=== PATIENT | female | born 1980 | race Caucasian/White ===

== ENCOUNTER → 2024-08-10 09:27 | Outpatient (CLI) | payer OTHER, SELFPAY ==
[2024-08-10 10:15] LABS: Add Manual Diff / Slide Review NO; Basophils Absolute Auto 100 /uL (0-100); Eosinophils Absolute Auto 100 /uL (0-450); Eosinophils Percent Auto 2.7 % (2-4); Hematocrit 38.3 % (36-46); Hemoglobin 12.6 g/dL (12.0-16.0); Lymphocytes Absolute Auto 1600 /uL (1100-4500); Lymphocytes Percent Auto 29.1 % (25-40); Mean Corpuscular HGB Conc 32.8 % (30-36); Mean Corpuscular Volume 85.2 fL (80-100); Monocytes Absolute Auto 500 /uL (0-900); Monocytes Percent Auto 8.6 % (3-14); Neutrophils Absolute Auto 3100 /uL (1500-7000); Neutrophils Percent Auto 58.6 % (50-75); Platelet Count 200 X10^3/uL (150-400); Red Blood Cell Count 4.49 X10^6/uL (4.0-5.2); Red Cell Distribution Width 14.4 % (11.6-14.8); White Blood Cell Count 5.4 X10^3/uL (4.5-11.0)
[2024-08-10 10:31] LABS: Alanine Aminotransferase 19 IU/L (<35); Albumin Globulin Ratio 1.6 (1.0-2.8); Alkaline Phosphatase 72 U/L (38-126); Aspartate Aminotransferase 21 IU/L (14-36); BUN Creatinine Ratio 17.1 (6-22); Bilirubin Total 0.6 mg/dL (0.2-1.3); Blood Urea Nitrogen 13 mg/dL (7-17); Carbon Dioxide 21 mmol/L (22-32); Chloride 108 mmol/L (98-107); Cholesterol 197 mg/dL (140-199); Estimated Glomerular Filt Rate > 60 mL/min (>60); Globulin 2.5 g/dL (1.7-4.1); Glucose 98 mg/dL (70-99); HDL Cholesterol 54 mg/dL (40-60); HEMOLYSIS < 15 (0-50); LDL Cholesterol Calculated 129 mg/dL (<100); Potassium 4.2 mmol/L (3.4-5.1); Sodium 137 mmol/L (137-145); Total Protein 6.5 g/dL (6.3-8.2); Triglycerides 72 mg/dL (35-150)
[2024-08-10 10:35] LABS: Hemoglobin A1C% w Est Avg Glu 5.4 % (4.0-6.0)
== END ==
PROVIDERS: Family Provider Family Medicine; PCP Family Medicine; Referring Provider Family Medicine; Visit Provider Family Medicine
DX: Z00.00 Encounter for general adult medical examination without abnormal findings (principal); Z68.43 Body mass index [BMI] 50.0-59.9, adult; E78.5 Hyperlipidemia, unspecified
CPT/HCPCS: 36415; 80053; 80061; 83036; 85025

== ENCOUNTER → 2024-10-02 19:08 | Outpatient (CLI) | payer OTHER, SELFPAY ==
--- NOTE | 2024-10-02 19:13 | DI.MRI.S_ITS ---
PROCEDURE: MR HEAD/BRAIN WO/W CON INDICATIONS: chronic migraines, vision changes TECHNIQUE: Noncontrast axial T1 spin echo, axial T2 fast spin echo, sagittal and axial FLAIR, coronal T2 fast spin echo, axial gradient echo, axial diffusion and ADC through the brain. After the administration of contrast, axial and coronal and sagittal 3D VIBE or T1 spin echo with fat saturation through the brain. COMPARISON: None. FINDINGS: Image quality: Excellent. CSF Spaces: Basal cisterns are patent. No extra-axial fluid collections. Ventricles are normal in size and shape. Brain: No midline shift. No intracranial bleeds or masses. No abnormal intracranial enhancement. The brainstem appears normal. Diffusion-weighted images demonstrate no acute infarct. No chronic ischemic insults. Normal intravascular flow voids are present. Skull and face: Calvarial marrow is normal in signal. Orbits appear normal. Sinuses: Sinuses and mastoids appear clear. IMPRESSION: 1. No acute process. No recent infarct. Dictated by: Susan Rodriguez M.D. on 10/03/2024 at 12:08 Approved by: Susan Rodriguez M.D. on 10/03/2024 at 12:10
== END ==
LOC: MRI 19:09
PROVIDERS: Family Provider Family Medicine; PCP Family Medicine; Referring Provider Family Medicine; Visit Provider Family Medicine
DX: G43.909 Migraine, unspecified, not intractable, without status migrainosus (principal); H53.9 Unspecified visual disturbance
CPT/HCPCS: 70553; A9579

== ENCOUNTER 2024-11-12 09:28 | Day surgery (SDC) | payer OTHER, SELFPAY ==
[2024-11-12 10:32] VITALS: BP 146/92; PULSE 79; RESP 18; TEMP 37.3; O2SAT 97
[2024-11-12] MEDS: LACTATED RINGERS 1,000 ML 42 ML IV (10:33)
[2024-11-12] MEDS: ONDANSETRON 4 MG/2 ML INJ IV (10:38)
--- NOTE | 2024-11-12 10:43 | PM.HP.IH.1 ---
History of Present Illness History of Present Illness Date Patient Seen: 11/12/24 Chief complaint: SDC PFS Social History Smoking Status: Never smoker alcohol intake: never Meds Home Medications and Allergies Home Medications ?Medication ?Instructions ?Recorded ?Confirmed ?Type diphenhydramine HCl 25 mg tablet 25 mg PO DAILY PRN allergy symptoms 08/02/24 11/12/24 History (Benadryl Allergy) topiramate 25 mg tablet 50 mg (2 x 25 mg) PO BID #120 tabs 09/27/24 11/12/24 Rx semaglutide (weight loss) 0.25 0.25 mg (0.5 mL) SUBCUT QWEEK #2 mL 10/01/24 11/12/24 Rx mg/0.5 mL subcutaneous pen injector sodium,potassium,mag sulfates 17.5 See Rx Instructions PO .COMPLEX 10/15/24 11/12/24 Rx gram-3.13 gram-1.6 gram oral soln #354 mL (Suprep Bowel Prep Kit) cetirizine 10 mg tablet (24Hour 10 mg PO DAILY PRN allergy symptoms 11/12/24 11/12/24 History Allergy) fluticasone propionate 50 2 spray intranasal DAILY PRN 11/12/24 11/12/24 History mcg/actuation nasal allergy symptoms spray,suspension (24 Hour Allergy Relief) Allergies Allergy/AdvReac Type Severity Reaction Status Date / Time nickel Allergy Intermediate Rash Verified 11/12/24 09:48 Exam Vital Signs (past 8 hours): - 11/12/24 10:32 Temperature 99.1 F Pulse Rate 79 Respiratory Rate 18 Blood Pressure 146/92 H Pulse Oximetry 97 Oxygen Delivery Method Room Air Oxygen Delivery Method Room Air Narrative Exam Narrative: Oropharynx free of lesions Chest clear to auscultation percussion Cardiac exam reveals no S3 or murmur Assessment & Plan Assessment & Plan narrative: 1st screening colonoscopy. Risks, benefits, alternatives have been explained. Also episodes of bright red blood Time-Based Coding :: [TOTAL MINUTES] spent with patient and on the chart (including review of chart, obtaining history, exam, reviewing outside data, placing orders, documenting exam and treatment plan, and counseling patient) on [DATE]. [employer] Document charge(s): No
--- NOTE | 2024-11-12 10:46 | PM.OP.COLON ---
Operative Date/Time/Diagnoses Date of procedure: 11/12/24 Time of procedure: 11:05 Pre-op diagnosis: See indication and findings Post-op diagnosis: same Procedure & Clinicians Study performed: Colonoscopy Same procedure(s) as scheduled: Yes Indications: 1st screening colonoscopy Surgeon: Curt Pandya Anesthesia Type: Other Procedure Notes Procedure in detail: After informed consent was obtained the patient was placed in left lateral decubitus position. The video colonoscope was introduced the rectum slowly advanced cecum. Preparation was good. On slow withdrawal mucosa was carefully examined. The scope was removed. The patient tolerated procedure well. Blood loss none Complications none Sedation mac Findings 1. Normal colonoscopy to cecum 2. 1 cm sessile polyp in the rectum cold snared and removed completely 3. Mild internal hemorrhoids It is quite likely this polyp be adenomatous in which case she should return in 5 years for follow-up. We will be in touch regarding biopsies
[2024-11-12 11:08] VITALS: BP 116/71; PULSE 82; RESP 16; TEMP 36.3; O2SAT 98
--- NOTE | 2024-11-12 11:09 | PATH_ITS ---
[facility] Accession Number: [id number] No. of containers..01 Tissue . 01 Material submitted: . rectum - RECTAL POLYP . 01 Diagnosis: A: RECTUM, POLYPECTOMY: Hyperplastic polyp. [facility] 11/22/2024 1310 Local . 01 Electronically signed: . Rox Bermudez MD, Pathologist NPI- [id number] . 01 Gross description: . Received in formalin with two identifiers and rectal polyp, is a single soft gr tissue fragment measuring 0.4 cm in greatest dimension. Entirely submitted in cassette A1. ([id number]:[id number]) /[facility] 11/20/2024 0120 Local . 01 Pathologist provided ICD-10: Z12.11 . 01 CPT . 396360 Specimen Comment: A courtesy copy of this report has been sent to [phone] Performed at: [address] [address], [place], [place] [id number] MD Augusto Bender MD Phone: [phone]
[2024-11-12 11:10] VITALS: BP 107/74; PULSE 77; RESP 17; O2SAT 99
[2024-11-12 11:15] VITALS: BP 116/79; PULSE 73; RESP 23; O2SAT 98
== END 2024-11-12 11:38 | disposition home or self-care (01) ==
PROVIDERS: Family Provider Family Medicine; PCP Family Medicine; Referring Provider Internal Medicine Gastroenterology; Visit Provider Internal Medicine Gastroenterology
PROC: 0DJD8ZZ Inspection of Lower Intestinal Tract, Via Natural or Artificial Opening Endoscopic (ICD-10-PCS; CPT 45378; principal; 2024-11-12 10:30)
DX: Z12.11 Encounter for screening for malignant neoplasm of colon (principal); K64.8 Other hemorrhoids; K62.1 Rectal polyp
CPT/HCPCS: 45385; J2405; J2704